=== PATIENT | male | born 1995 | race Caucasian/White ===

== ENCOUNTER 2016-12-11 01:01 | Emergency (ER) ==
[2016-12-11 01:17] VITALS: BP 115/73; TEMP 96.9; BMI 45.9
--- NOTE | 2016-12-11 01:52 | CT ---
EXAM: CT brain without contrast HISTORY: Dizziness and headache TECHNIQUE: CT of the brain without intravenous contrast FINDINGS: There is no acute hemorrhage midline shift or mass effect. No hydrocephalus or abnormal e xtra-axial fluid collection. No significant parenchymal attenuation abnormality. The bony cranium a ppears normal. The visualized paranasal sinuses are clear. Soft tissues without significant abnormali ty. IMPRESSION: 1. CT of the brain within normal limits.
[2016-12-11] MEDS ORDERED: IMITREX SUBCUT STA (02:10)
[2016-12-11] MEDS ORDERED: VALIUM PO STA (02:10)
--- NOTE | 2016-12-11 02:22 | ED.PDOC ---
General ED Provider: Dr. JAROCHO MENDEZ Chief Complaint: Headache Stated Complaint: Patient state that he has had headaches for the past 3 weeks. Was seen at [facility] ER treated with allergy medication. Time Seen by Physician: 02:19 Mode of Arrival: Walk-In Information Source: Patient Exam Limitations: No limitations Primary Care Provider: MILES BELCHER Seen Within Last 72 Hours for Same Complaint By: ED Nursing and Triage Documentation Reviewed and Agree: Yes Neurological Complaint Exam - Headache Complaint/Exam Symptoms Are: Still present Timing: Constant Worst Headache Ever: No Initial Severity: Moderate Current Severity: Moderate Location: Diffuse Character: Reports: Dull, Throbbing Aggravating: Reports: Bright lights Alleviating: Reports: None Associated Signs and Symptoms: Reports: Dizziness, Nausea. Denies: Sinus pressure Related History: Reports: Similar episode Related Surgical History: Reports: None SAH Risk Factors: Reports: None Meningitis Risk Factors: Reports: None SDH Risk Factors: Reports: None Temporal Arteritis Risk Factors: Reports: None Normal Head CT Within Last 12 Months: No (never had one) Fundoscopic Exam: Present: Normal Findings Papilledema Present: No Temporal Artery Tenderness: Present: None Sinus Tenderness: Present: None TMJ Tenderness: Present: None Glascow Coma Scale (see protocol): 15 Meningeal Signs Positive: No Pain on Passive Flexion-Positive Kernig's: No ROM Limited In: No Limitiations Focal Weakness: Present: None Focal Sensory Loss: Present: None Gait: Normal Nystagmus Present: No Gag Reflex Present: No [id number]: Normal Findings Romberg Test Positive: No Babinski Sign: Negative Right, Negative Left Heel to Toe Normal: Yes Differential Diagnoses: Migraine Review of Systems - Review Of Systems Constitutional: Reports: Loss of appetite Eyes: Reports: Photophobia Ears, Nose, Mouth, Throat: Reports: No symptoms Respiratory: Reports: No symptoms Cardiac: Reports: Lightheadedness GI: Reports: No symptoms : Reports: No symptoms Musculoskeletal: Reports: No symptoms Skin: Reports: No symptoms Neurological: Reports: Anxiety, Headache Endocrine: Reports: No symptoms Hematologic/Lymphatic: Reports: No symptoms All Other Systems: Reviewed and Negative Past Medical History - Past Medical History Previously Healthy: Yes Endocrine: Reports: None Cardiovascular: Reports: None Respiratory: Reports: None Hematological: Reports: None Gastrointestinal: Reports: None Genitourinary: Reports: None Neuro/Psych: Reports: Migraine Musculoskeletal: Reports: None Cancer: Reports: None Other Pertinent Past Medical History: RIGHT EYE INJURY, POKED WITH SCREWDRIVER - Surgical History General Surgical History: Reports: None - Family History Family History: Reports: None - Social History Smoking Status: Former smoker, Chews tobacco Hx Substance Use: No Alcohol Screening: Occasionally - Immunizations Tetanus Shot up to Date: Yes Physical Exam - Physical Exam Appearance: Ill-appearing, Obese Ill-appearing: Mild Pain Distress: Moderate Eyes: BIBI, EOMI, Conjunctiva clear Neck: Supple Respiratory: Airway patent, Breath sounds clear, Breath sounds equal, Respirations nonlabored Cardiovascular: RRR, Pulses normal, No rub, No murmur GI/: Soft Musculoskeletal: Normal strength Neurological: Sensation intact, Motor intact, Alert, Oriented Psychiatric: Anxious Critical Care Note - Critical Care Note Total Time (mins): 0 Course - Course Orders, Labs, Meds: Orders Category Date Time Status Diazepam [Valium] MEDS 12/11/16 02:10 Discontinued 5 mg PO ONCE STA Sumatriptan Succinate [Imitrex] MEDS 12/11/16 02:10 Discontinued [address]A CT HEAD W/O CONTRAST Stat RADS 12/11/16 01:27 Completed Medications Discontinued Medications Generic Name Dose Route Start Last Admin Trade Name Freq PRN Reason Stop Dose Admin Diazepam 5 mg 12/11/16 02:10 12/11/16 02:21 Valium PO 12/11/16 02:11 5 mg ONCE STA Administration Sumatriptan Succinate 6 mg 12/11/16 02:10 12/11/16 02:21 Imitrex SUBCUT 12/11/16 02:11 6 mg ONCE STA Administration Vital Signs: Temp Pulse Resp BP Pulse Ox 12/11/16 01:01 96.9 F L 73 20 115/73 95 Departure - Departure Time of Disposition: 03:46 Disposition: HOME SELF-CARE Discharge Problem: Headache Instructions: Migraine Headache (ED), Lightheadedness (ED) Condition: Good Pt referred to PMD for follow-up: Yes Additional Instructions: Push fluids Follow up with the Clinic in 3 days Prescriptions: Butalb/Acetaminophen/Caffeine [Fioricet] 1 each PO TID PRN #15 tab PRN Reason: Headache Ondansetron HCl [Zofran Tab] 4 mg PO Q8H PRN #14 tablet PRN Reason: Nausea / Vomiting Allergies/Adverse Reactions: Allergies cephalexin monohydrate [From [employer]] Adverse Reaction (Verified 12/11/16 01:16) BREAKS OUT, RASH Home Medications: Ambulatory Orders Ibuprofen 400 mg PO Q4H PRN 04/28/15 Butalb/Acetaminophen/Caffeine [Fioricet] 1 each PO TID PRN #15 tab 12/11/16 Ondansetron HCl [Zofran Tab] 4 mg PO Q8H PRN #14 tablet 12/11/16
== END 2016-12-11 04:05 | disposition home or self-care (01) ==
LOC: ED 01:01
DX: R51 Headache (principal); R42 Dizziness and giddiness
CPT/HCPCS: 96372; 99283

== ENCOUNTER 2017-08-10 00:38 | Emergency (ER) ==
[2017-08-10 01:01] VITALS: TEMP 97.7; BMI 86.7
--- NOTE | 2017-08-10 01:19 | ED.PDOC ---
General ED Provider: Dr. JAROCHO MENDEZ Chief Complaint: Dizziness Stated Complaint: pateint is a 22 year old male who complains of 2 month history of intermitent shooting pain on the chest and arms. The pain does not last more thtn 2 -5 secounds. 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 Also complains of non positonal Dizziness that only last for few secounds with no associated nausea. Time Seen by Physician: 01:17 Mode of Arrival: Walk-In Information Source: Patient Exam Limitations: No limitations Nursing and Triage Documentation Reviewed and Agree: Yes Reviewed sepsis parameters & appropriate labs ordered?: No System Inflammatory Response Syndrome: Not Applicable Sepsis Protocol: For patient's 13 years and over: Temp is 96.8 and below OR 101 and greater Pulse >90 BPM Resp >20/minute Acutely Altered Mental Status Are patient's symptoms suggestive of a new infection, such as: -Pneumonia -Skin, Soft Tissue -Endocarditis -UTI -Bone, Joint Infection -Implantable Device -Acute Abdominal Infection -Wound Infection -Meningitis -Blood Stream Catheter Infection -Unknown System Inflammatory Response Syndrome: Not Applicable Review of Systems - Review Of Systems Constitutional: Reports: No symptoms Eyes: Reports: No symptoms Ears, Nose, Mouth, Throat: Reports: No symptoms Respiratory: Reports: No symptoms Cardiac: Reports: Chest pain, Lightheadedness GI: Reports: No symptoms : Reports: No symptoms Musculoskeletal: Reports: Joint pain, Muscle pain Skin: Reports: No symptoms Neurological: Reports: Anxiety Endocrine: Reports: No symptoms Hematologic/Lymphatic: Reports: No symptoms All Other Systems: Reviewed and Negative Past Medical History - Past Medical History Previously Healthy: Yes Endocrine: Reports: None Cardiovascular: Reports: None Respiratory: Reports: None Hematological: Reports: None Gastrointestinal: Reports: None Genitourinary: Reports: None Neuro/Psych: Reports: Migraine Musculoskeletal: Reports: None Cancer: Reports: None Other Pertinent Past Medical History: RIGHT EYE INJURY, POKED WITH SCREWDRIVER - Surgical History General Surgical History: Reports: None - Family History Family History: Reports: None - Social History Smoking Status: Former smoker, Chews tobacco Hx Substance Use: No Alcohol Screening: Occasionally - Immunizations Tetanus Shot up to Date: Yes Physical Exam - Physical Exam Appearance: Well-appearing, Obese Pain Distress: Mild Eyes: BIBI, EOMI, Conjunctiva clear ENT: Ears normal, Nose normal, Oropharynx normal Neck: Supple Respiratory: Airway patent, Breath sounds clear, Breath sounds equal, Respirations nonlabored Cardiovascular: RRR, Pulses normal, No rub, No murmur GI/: Soft, Nontender, No masses, Bowel sounds normal, No Organomegaly Musculoskeletal: Normal strength Skin: Warm, Dry, Normal color Neurological: Sensation intact, Motor intact, Reflexes intact, Cranial nerves intact, Alert, Oriented Psychiatric: Anxious Interpretation - Radiology Interpretation Radiology Interpretation By: ED Physician Radiology Results: Negative Exam Interpreted: CXR - EKG Interpretation Time of EKG #1: 01:21 Rate: Normal Rhythm: Sinus Ectopy: None Interpretation: incomplete right bundle branch Block Critical Care Note - Critical Care Note Total Time (mins): 0 Course - Course Hematology/Chemistry: 08/10/17 01:35 08/10/17 01:35 Orders, Labs, Meds: Lab Review 08/10/17 08/10/17 01:35 01:35 WBC 7.62 RBC 4.80 Hgb 13.4 L Hct 40.5 L MCV 84.4 MCH 27.9 MCHC 33.1 RDW Coeff of Jarvis 13.2 Plt Count 220 Immature Gran % (Auto) 0.4 Neut % (Auto) 45.6 Lymph % (Auto) 43.6 [place] % (Auto) 7.6 Eos % (Auto) 2.4 Baso % (Auto) 0.4 Immature Gran # (Auto) 0.0 Neut # (Auto) 3.5 Lymph # (Auto) 3.3 [place] # (Auto) 0.6 Eos # (Auto) 0.2 Baso # (Auto) 0.0 Sodium 141 Potassium 3.7 Chloride 109 H Carbon Dioxide 22 Anion Gap 13.7 BUN 11 Creatinine 0.89 Estimated GFR (MDRD) 105.00 BUN/Creatinine Ratio 12.35 Glucose 99 Calcium 8.8 Total Bilirubin 0.4 AST 18 ALT 21 Alkaline Phosphatase 52 Total Creatine Kinase 303 CK-MB (CK-2) 2.5 CK-MB (CK-2) % 0.01596 Troponin I < 0.0100 Total Protein 6.4 Albumin 3.4 Globulin 3.0 Albumin/Globulin Ratio 1.13 TSH 2.882 Orders Category Date Time Status EKG-(ED ONLY) Stat CARDIO 08/10/17 01:15 Completed Orthostatic Vital Signs [ED ORTHOSTATIC VITAL SIGNS] . EMERGENCY 08/10/17 01: 20 Active ONCE CBC W/ AUTO DIFF Stat LAB 08/10/17 01:35 Completed COMPREHENSIVE METABOLIC PANEL Stat LAB 08/10/17 01:35 Completed CREATINE KINASE Stat LAB 08/10/17 01:35 Completed TROPONIN I Stat LAB 08/10/17 01:35 Completed TSH [THYROID STIMULATING HORMONE] Stat LAB 08/10/17 01:35 Completed CHEST, 2 VIEWS PA & LAT Stat RADS 08/10/17 01:16 Completed Vital Signs: Temp Pulse Resp BP Pulse Ox 08/10/17 01:19 71 118/74 08/10/17 01:18 72 118/88 08/10/17 01:17 70 120/61 08/10/17 00:39 97.7 F 70 20 122/85 96 Departure - Departure Time of Disposition: 02:50 Disposition: HOME SELF-CARE Discharge Problem: Dizziness, Musculoskeletal pain, Cubital tunnel syndrome of both upper extremities Instructions: Chest Pain (ED), Cubital Tunnel Syndrome (ED), Lightheadedness ( ED) Condition: Stable Pt referred to PMD for follow-up: Yes IPMP verified?: No Additional Instructions: Rest. Take Motrin 600mg TID as needed for pain Push fluids to replenish you losses from perspirations. Loose weight will help with cubical tunnels syndrome. Prescriptions: Ibuprofen [Motrin] 600 mg PO Q6H PRN #30 tablet PRN Reason: Analgesia Allergies/Adverse Reactions: Allergies cephalexin monohydrate [From [employer]] Adverse Reaction (Verified 08/10/17 00:50) BREAKS OUT, RASH Home Medications: Ambulatory Orders Ibuprofen [Motrin] 600 mg PO Q6H PRN #30 tablet 08/10/17 Disposition Discussed With: Patient, Family
[2017-08-10 01:24] VITALS: BP 118/74
--- NOTE | 2017-08-10 02:00 | DI ---
EXAM: PA and lateral views of the chest. HISTORY: Cough. FINDINGS: The bones are unremarkable. The cardiac silhouette and pulmonary vasculature are within no rmal limits. The costophrenic angles are clear. No infiltrate or consolidation. Impression: No acute cardiopulmonary disease.
== END 2017-08-10 02:55 | disposition home or self-care (01) ==
LOC: ED 00:38
DX: R42 Dizziness and giddiness (principal); M79.1 Myalgia; G56.23 Lesion of ulnar nerve, bilateral upper limbs; R07.9 Chest pain, unspecified; Z72.0 Tobacco use
CPT/HCPCS: 36415; 80053; 82550; 82553; 84443; 84484; 85025; 93005; 93010; 99283

== ENCOUNTER 2017-11-28 21:16 | Emergency (ER) ==
[2017-11-28 21:21] VITALS: BP 117/79; TEMP 100.3; BMI 42.5
--- NOTE | 2017-11-28 22:17 | ED.PDOC ---
General ED Provider: Dr. MILES BELCHER-ER Chief Complaint: Fever Stated Complaint: gloria had runny nose with cough and congestion and body aches Time Seen by Physician: 22:15 Mode of Arrival: Walk-In Information Source: Patient Exam Limitations: No limitations Nursing and Triage Documentation Reviewed and Agree: Yes Does patient meet sepsis criteria?: No System Inflammatory Response Syndrome: Not Applicable Sepsis Protocol: For patient's 13 years and over: Temp is 96.8 and below OR 101 and greater Pulse >90 BPM Resp >20/minute Acutely Altered Mental Status Are patient's symptoms suggestive of a new infection, such as: -Pneumonia -Skin, Soft Tissue -Endocarditis -UTI -Bone, Joint Infection -Implantable Device -Acute Abdominal Infection -Wound Infection -Meningitis -Blood Stream Catheter Infection -Unknown Respiratory Complaint Exam - Respiratory Complaint/Exam Onset/Duration: 2 days Symptoms Are: Still present Timing: Constant Initial Severity: Moderate Location: Nose, Chest Character: Reports: Productive cough Aggravating: Reports: URI Alleviating: Reports: None Associated Signs and Symptoms: Reports: Fever, URI, Nasal congestion, Decreased oral intake. Denies: Rapid breathing, Dyspnea Related History: Reports: Similar episode History of Healthcare-Acquired Pneumonia: No Pseudomonas Risk Factors: Reports: None Tuberculosis Risk Factors: Reports: None Status Asthmaticus Risk Factors: Reports: None Home Oxygen Use: No Recent Stress Test: No Recent Echo/LV Function: No Current Antibiotic Use: No Current Asthma Medication Use: No Respiratory Distress: None Inadequate Respiratory Effort: No Dysphagia Present: No Stridor Present: No JVD Present: No Accessory Muscle Use: No Retractions: Not Present Diminished Breath Sounds: No Prolonged Respiration: Inspiratory phase Sinus Tenderness: Maxillary Grunting Respirations: No Kussmaul Respirations: No Differential Diagnoses: URI Review of Systems - Review Of Systems Constitutional: Reports: Chills, Fever Eyes: Reports: No symptoms Ears, Nose, Mouth, Throat: Reports: Nose discharge Respiratory: Reports: Cough Cardiac: Reports: No symptoms GI: Reports: No symptoms : Reports: No symptoms Musculoskeletal: Reports: No symptoms Skin: Reports: No symptoms Neurological: Reports: No symptoms Endocrine: Reports: No symptoms Hematologic/Lymphatic: Reports: No symptoms All Other Systems: Reviewed and Negative Past Medical History - Past Medical History Previously Healthy: Yes Endocrine: Reports: None Cardiovascular: Reports: None Respiratory: Reports: None Hematological: Reports: None Gastrointestinal: Reports: None Genitourinary: Reports: None Neuro/Psych: Reports: Migraine Musculoskeletal: Reports: None Cancer: Reports: None Other Pertinent Past Medical History: RIGHT EYE INJURY, POKED WITH SCREWDRIVER - Surgical History General Surgical History: Reports: None - Family History Family History: Reports: None - Social History Smoking Status: Never smoker Hx Substance Use: No Alcohol Screening: Occasionally - Immunizations Tetanus Shot up to Date: Yes Physical Exam - Physical Exam Appearance: Well-appearing, No pain distress, Well-nourished Eyes: BIBI, EOMI, Conjunctiva clear ENT: Rhinorrhea Neck: Supple Respiratory: Airway patent, Breath sounds clear, Breath sounds equal, Respirations nonlabored Cardiovascular: RRR, Pulses normal, No rub, No murmur GI/: Soft, Nontender, No masses, Bowel sounds normal, No Organomegaly Musculoskeletal: Normal strength, ROM intact, No edema, No calf tenderness Skin: Warm, Dry, Normal color Neurological: Sensation intact Psychiatric: Affect appropriate Critical Care Note - Critical Care Note Total Time (mins): 0 Course - Course Orders, Labs, Meds: Lab Review 11/28/17 21:25 Influ A Molecular Assay Negative by naat Influ B Molecular Assay Negative by naat Orders Category Date Time Status FLU A/B MOLECULAR Stat LAB 11/28/17 21:25 Completed MOLECULAR GROUP A STREP Stat LAB 11/28/17 21:25 Completed Vital Signs: Temp Pulse Resp BP Pulse Ox 11/28/17 21:16 100.3 F H 103 H 95 H 117/79 95 Departure - Departure Time of Disposition: 22:16 Disposition: HOME SELF-CARE Discharge Problem: URI (upper respiratory infection) Qualifiers: URI type: unspecified viral URI Qualified Code(s): J06.9 - Acute upper respiratory infection, unspecified Sinusitis Qualifiers: Sinusitis location: unspecified location Chronicity: acute Recurrence: not specified as recurrent Qualified Code(s): J01.90 - Acute sinusitis, unspecified Instructions: Upper Respiratory Infection (ED) Condition: Good Pt referred to PMD for follow-up: No IPMP verified?: No Additional Instructions: biaxin 500mg bid x 10 days---continue flonase---tessalon perles 200mg tid prn cough 30--motrin 600mg tid prn temp/body aches--fluids---recheck in 48hrs if not better Allergies/Adverse Reactions: Allergies cephalexin monohydrate [From [employer]] Adverse Reaction (Verified 11/28/17 21:21) BREAKS OUT, RASH Home Medications: Ambulatory Orders 1 [No Reported Medications] 11/28/17 Disposition Discussed With: Patient, Family
== END 2017-11-28 22:22 | disposition home or self-care (01) ==
LOC: ED 21:16
DX: J06.9 Acute upper respiratory infection, unspecified (principal); J01.90 Acute sinusitis, unspecified
CPT/HCPCS: 87502; 87651; 99283

== ENCOUNTER 2018-07-26 23:13 | Emergency (ER) ==
[2018-07-26 23:19] VITALS: BP 129/80; TEMP 99.5; BMI 46.4
--- NOTE | 2018-07-26 23:24 | ED.PDOC ---
General ED Provider: Dr. MILES BELCHER-ER Chief Complaint: Sore Throat Stated Complaint: my throat is sore and my sinuses drain aNd im coughing up some green stuff Time Seen by Physician: 23:22 Mode of Arrival: Walk-In Information Source: Patient, Family Exam Limitations: No limitations Nursing and Triage Documentation Reviewed and Agree: Yes Does patient meet sepsis criteria?: No System Inflammatory Response Syndrome: Not Applicable Sepsis Protocol: For patient's 13 years and over: Temp is 96.8 and below OR 101 and greater Pulse >90 BPM Resp >20/minute Acutely Altered Mental Status Are patient's symptoms suggestive of a new infection, such as: -Pneumonia -Skin, Soft Tissue -Endocarditis -UTI -Bone, Joint Infection -Implantable Device -Acute Abdominal Infection -Wound Infection -Meningitis -Blood Stream Catheter Infection -Unknown Respiratory Complaint Exam - Respiratory Complaint/Exam Onset/Duration: 24 hrs Symptoms Are: Still present Timing: Constant Initial Severity: Mild Current Severity: Mild Location: Nose, Chest Character: Reports: Productive cough Aggravating: Reports: URI Alleviating: Reports: None Associated Signs and Symptoms: Reports: URI, Nasal congestion, Sore throat Status Asthmaticus Risk Factors: Reports: None Home Oxygen Use: No Recent Stress Test: No Recent Echo/LV Function: No Current Antibiotic Use: No Current Asthma Medication Use: No Respiratory Distress: None Inadequate Respiratory Effort: No Dysphagia Present: No Stridor Present: No JVD Present: No Accessory Muscle Use: No Retractions: Not Present Diminished Breath Sounds: No Sinus Tenderness: Maxillary Grunting Respirations: No Kussmaul Respirations: No Differential Diagnoses: Sinusitis, URI Review of Systems - Review Of Systems Constitutional: Reports: No symptoms Eyes: Reports: No symptoms Ears, Nose, Mouth, Throat: Reports: Nose discharge Respiratory: Reports: Cough Cardiac: Reports: No symptoms GI: Reports: No symptoms : Reports: No symptoms Musculoskeletal: Reports: No symptoms Skin: Reports: No symptoms Neurological: Reports: No symptoms Endocrine: Reports: No symptoms Hematologic/Lymphatic: Reports: No symptoms All Other Systems: Reviewed and Negative Past Medical History - Past Medical History Previously Healthy: Yes Endocrine: Reports: None Cardiovascular: Reports: None Respiratory: Reports: None Hematological: Reports: None Gastrointestinal: Reports: None Genitourinary: Reports: None Neuro/Psych: Reports: Migraine Musculoskeletal: Reports: None Cancer: Reports: None Other Pertinent Past Medical History: RIGHT EYE INJURY, POKED WITH SCREWDRIVER - Surgical History General Surgical History: Reports: None - Family History Family History: Reports: None - Social History Smoking Status: Never smoker Hx Substance Use: No Alcohol Screening: Occasionally Physical Exam - Physical Exam Appearance: Well-appearing, No pain distress, Well-nourished Eyes: BIBI ENT: Rhinorrhea Neck: Supple Respiratory: Airway patent, Breath sounds clear, Breath sounds equal, Respirations nonlabored Cardiovascular: RRR, Pulses normal, No rub, No murmur GI/: Soft, Nontender, No masses, Bowel sounds normal, No Organomegaly Musculoskeletal: Normal strength, ROM intact, No edema, No calf tenderness Skin: Warm, Dry, Normal color Neurological: Sensation intact, Motor intact, Reflexes intact, Cranial nerves intact, Alert, Oriented Psychiatric: Affect appropriate, Mood appropriate Critical Care Note - Critical Care Note Total Time (mins): 0 Course - Course Orders, Labs, Meds: Orders Category Date Time Status FLU A/B MOLECULAR Stat LAB 07/26/18 23:21 Ordered MOLECULAR GROUP A STREP Stat LAB 07/26/18 23:21 Ordered Vital Signs: Temp Pulse Resp BP Pulse Ox 07/26/18 23:14 99.5 F 91 H 20 129/80 95 Departure - Departure Time of Disposition: 23:26 Disposition: HOME SELF-CARE Discharge Problem: Sinusitis Qualifiers: Sinusitis location: unspecified location Chronicity: acute Recurrence: non- recurrent Qualified Code(s): J01.90 - Acute sinusitis, unspecified Instructions: Sinusitis (ED) Condition: Good Pt referred to PMD for follow-up: Yes IPMP verified?: No Additional Instructions: medrol dose pack, biaxin 500mg bid x 10 days---flonase nasaL spray one puff each nostril bid ---tessalon perles 200mg tid prn cough 30---stop smoking--- recheck in 72 hrs if not better Allergies/Adverse Reactions: Allergies cephalexin monohydrate [From [email or web address]] Adverse Reaction (Verified 07/26/18 23:19) BREAKS OUT, RASH Home Medications: Ambulatory Orders 1 [No Reported Medications] 11/28/17 Disposition Discussed With: Patient, Family
== END 2018-07-26 23:40 | disposition home or self-care (01) ==
LOC: ED 23:13
DX: J01.90 Acute sinusitis, unspecified (principal)
CPT/HCPCS: 87502; 87651; 99283

== ENCOUNTER 2018-09-15 21:35 | Emergency (ER) ==
[2018-09-15 21:45] VITALS: TEMP 98.3; BMI 46.9
[2018-09-15 21:49] VITALS: BP 119/82
[2018-09-15] MEDS ORDERED: DECADRON 4 MG/ML SDV IM STA (21:55)
[2018-09-15] MEDS ORDERED: BENADRYL IM STA (21:56)
--- NOTE | 2018-09-15 21:58 | ED.PDOC ---
General ED Provider: Dr. MILES BELCHER-ER Chief Complaint: Bite Stated Complaint: i think something bit me while mowing Time Seen by Physician: 21:40 Mode of Arrival: Walk-In Information Source: Patient Exam Limitations: No limitations Nursing and Triage Documentation Reviewed and Agree: Yes Does patient meet sepsis criteria?: No System Inflammatory Response Syndrome: Not Applicable Sepsis Protocol: For patient's 13 years and over: Temp is 96.8 and below OR 101 and greater Pulse >90 BPM Resp >20/minute Acutely Altered Mental Status Are patient's symptoms suggestive of a new infection, such as: -Pneumonia -Skin, Soft Tissue -Endocarditis -UTI -Bone, Joint Infection -Implantable Device -Acute Abdominal Infection -Wound Infection -Meningitis -Blood Stream Catheter Infection -Unknown Skin Complaint Exam - Skin/Soft Tissue Complaint/Exam Onset/Duration: 2 hours Symptoms Are: Still present Timing: Constant Initial Severity: Mild Current Severity: Mild Location: right forearm Character: Reports: Redness, Swelling, Raised Aggravating: Reports: None Alleviating: Reports: None Associated Signs and Symptoms: Reports: Itching, Tenderness Related History: Reports: Insect bite/sting Related Surgical History: Reports: None Recent Exposure to Others w/Similar Symptoms: No Skin Findings: Present: Erythema Joint Tenderness Present: No Differential Diagnoses: Infection Review of Systems - Review Of Systems Constitutional: Reports: No symptoms Eyes: Reports: No symptoms Ears, Nose, Mouth, Throat: Reports: No symptoms Respiratory: Reports: No symptoms Cardiac: Reports: No symptoms GI: Reports: No symptoms : Reports: No symptoms Musculoskeletal: Reports: No symptoms Skin: Reports: Lumps, Rash Neurological: Reports: No symptoms Endocrine: Reports: No symptoms Hematologic/Lymphatic: Reports: No symptoms All Other Systems: Reviewed and Negative Past Medical History - Past Medical History Previously Healthy: Yes Endocrine: Reports: None Cardiovascular: Reports: None Respiratory: Reports: None Hematological: Reports: None Gastrointestinal: Reports: None Genitourinary: Reports: None Neuro/Psych: Reports: Migraine Musculoskeletal: Reports: None Cancer: Reports: None Other Pertinent Past Medical History: RIGHT EYE INJURY, POKED WITH SCREWDRIVER - Surgical History General Surgical History: Reports: None - Family History Family History: Reports: None - Social History Smoking Status: Current every day smoker, Heavy tobacco smoker Hx Substance Use: No Alcohol Screening: Occasionally - Immunizations Tetanus Shot up to Date: Yes Physical Exam - Physical Exam Appearance: Well-appearing, No pain distress, Well-nourished Eyes: BIBI, EOMI, Conjunctiva clear ENT: Ears normal, Nose normal, Oropharynx normal Neck: Supple Respiratory: Airway patent Cardiovascular: RRR, Pulses normal, No rub, No murmur GI/: Soft, Nontender, No masses, Bowel sounds normal, No Organomegaly Musculoskeletal: Normal strength, ROM intact, No edema, No calf tenderness Skin: Warm, Dry, Normal color Neurological: Sensation intact, Motor intact, Reflexes intact, Cranial nerves intact, Alert, Oriented Psychiatric: Affect appropriate, Mood appropriate Critical Care Note - Critical Care Note Total Time (mins): 0 Course - Course Orders, Labs, Meds: Orders Category Date Time Status Dexamethasone 4 mg/ml Inj [Decadron 4 mg/ml Sdv] MEDS 09/15/18 21:55 Discontinued 8 mg IM ONCE STA Diphenhydramine Inj [Benadryl] MEDS 09/15/18 21:56 Discontinued 50 mg IM ONCE STA Medications Discontinued Medications Generic Name Dose Route Start Last Admin Trade Name Lizette PRN Reason Stop Dose Admin Dexamethasone Sodium Phosphate 8 mg 09/15/18 21:55 09/15/18 22:07 Decadron 4 Mg/Ml Sdv IM 09/15/18 21:56 8 mg ONCE STA Administration Diphenhydramine HCl 50 mg 09/15/18 21:56 Benadryl IM 09/15/18 21:57 ONCE STA he declined shots and indicated he would go home) Vital Signs: Temp Pulse Resp BP Pulse Ox 09/15/18 21:48 119/82 09/15/18 21:35 98.3 F 90 20 119/82 95 Departure - Departure Time of Disposition: 22:10 Disposition: AMA Discharge Problem: Allergic reaction Qualifiers: Encounter type: initial encounter Qualified Code(s): T78.40XA - Allergy, unspecified, initial encounter Instructions: General Allergic Reaction (ED) Condition: Good Pt referred to PMD for follow-up: Yes IPMP verified?: No Additional Instructions: use benadryl and elevattion--retujrn prn Allergies/Adverse Reactions: Allergies cephalexin monohydrate [From Keflex] Adverse Reaction (Verified 09/15/18 21:45) BREAKS OUT, RASH Home Medications: Ambulatory Orders 1 [No Reported Medications] 11/28/17 Disposition Discussed With: Patient
== END 2018-09-15 22:15 | disposition left against medical advice (07) ==
LOC: ED 21:35
DX: T78.40XA Allergy, unspecified, initial encounter (principal); R21 Rash and other nonspecific skin eruption; F17.210 Nicotine dependence, cigarettes, uncomplicated
CPT/HCPCS: 96372; 99284